=== PATIENT | female | born 1935 | race Two or more races ===

== ENCOUNTER 2023-04-05 13:36 | Inpatient (IN) | payer OTHER ==
[~2023-04-05] VITALS: Ht 157.5 cm; Wt 54.1 kg
[2023-04-05 14:44] VITALS: PULSE 81; RESP 19; O2SAT 96
[2023-04-05 14:53] LABS: Basophils # (auto) 0 10 ^3/uL (0-0.2); Basophils % (auto) 0.1 % (0.0-2.0); Eosinophils # (auto) 0 10 ^3/uL (0-0.8); Hematocrit 37.6 % (36.0-46.0); Hemoglobin 12.4 g/dL (12.2-16.2); Lymphocytes # (auto) 0.6 10 ^3/uL (0.4-5.4); Lymphocytes % (auto) 3.5 % (10.0-50.0); Mean Corpuscular Hemoglobin 30.1 pg (28.0-32.0); Mean Corpuscular Hgb Conc. 32.9 g/dL (32.0-36.0); Mean Corpuscular Volume 91.4 fL (80.0-100.0); Monocytes # (auto) 0.8 10 ^3/uL (0-1.3); Monocytes % (auto) 4.8 % (0.0-12.0); Neutrophils % (auto) 91.6 % (37.0-80.0); Nucleated Red Blood Cells % 0.1 %; Red Blood Cells 4.11 10^6/uL (4.0-5.20); White Blood Cell 17.4 10^3/uL (4.4-10.8)
[2023-04-05 15:00] LABS: Urine Bacteria FEW /hpf (None Seen); Urine Blood Negative /uL (Negative); Urine Clarity Clear (Clear); Urine Color Yellow (Yellow); Urine Protein, UAD TRACE (Negative); Urine Specific Gravity 1.018 (1.001-1.035); Urine Urobilinogen Normal (Negative); Urine WBC 4 /hpf (0 - 5); Urine pH 6.5 (5.0-8.0)
[2023-04-05 15:04] LABS: INR 1.05 (0.9-1.15); Partial Thromboplastin Time 29.1 SEC (24.5-34.5)
[2023-04-05 15:26] LABS: Alanine Aminotransferase 22 U/L (7-40); Albumin 4.3 g/dL (3.2-4.8); Alkaline Phosphatase 115 U/L (46-116); Anion Gap 8 (5-15); Aspartate Aminotransferase 36 U/L (13-40); BUN/Creatinine Ratio 28.3 (10.0-20.0); Blood Urea Nitrogen 17 mg/dL (9-23); Calcium 9.5 mg/dL (8.7-10.4); Carbon Dioxide 27 mmol/L (20-30); Chloride 103 mmol/L (98-107); Glucose 129 mg/dL (74-106); Potassium 4.1 mmol/L (3.5-5.1); Sodium 138 mmol/L (136-145)
[2023-04-05 15:27] LABS: Total Protein 6.7 g/dL (5.7-8.2)
[2023-04-05] MEDS ORDERED: SODIUM CHLORIDE 0.9% 1,000 ML IV ONE (16:30)
[2023-04-05] MEDS ORDERED: cefTRIAXone 1GM/50ML D5W 50 ML IV ONE (16:30)
[2023-04-05] MEDS ORDERED: HYDROmorphone HCL 2 MG/ML VL/or syr IV PRN (17:15)
[2023-04-05] MEDS ORDERED: SODIUM CHLORIDE 0.9% 1,000 ML IV SCH (17:15)
[2023-04-05] MEDS ORDERED: DOCUSATE SOD 100 MG CAP PO PRN (17:15)
[2023-04-05] MEDS ORDERED: MORPHINE SULFATE INJ 2 MG/ml SYRG IV PRN (17:15)
[2023-04-05] MEDS ORDERED: ONDANSETRON HCL 4 MG/2 ML VIAL IV PRN (17:15)
[2023-04-05 18:03] LABS: INR 1.02 (0.9-1.15); Partial Thromboplastin Time 30.2 SEC (24.5-34.5); Prothrombin Time 10.7 sec (9.3-11.8)
[2023-04-05 19:20] VITALS: PULSE 95; RESP 18; O2SAT 97
[2023-04-05 20:20] LABS: LDL Cholesterol 113 mg/dL (< 100); Triglycerides 79 mg/dL (< 150)
[2023-04-05 20:22] LABS: Cholesterol 195 mg/dL (< 200); HDL Cholesterol 71 mg/dL (40-59)
[2023-04-05 21:13] LABS: Amphetamine Screen, Urine Neg (NEGATIVE); Barbiturate Scree,Urine Neg (NEGATIVE); Benzodiazephine Screen, Urine Neg (NEGATIVE); Cannabinoid Screen, Urine Neg (NEGATIVE); Cocaine Screen, Urine Neg (NEGATIVE); Opiate Scree,Urine Neg (NEGATIVE); Phencyclidine Screen, Urine Neg (NEGATIVE)
[2023-04-05 23:34] VITALS: BP 136/76; PULSE 87; TEMP 99.3; O2SAT 96
[2023-04-06] VITALS (10 sets, daily range): BP systolic 109–137; BP diastolic 59–78; PULSE 67–98; RESP 14–19; TEMP 97.5–98.9; O2SAT 90–99
[2023-04-06] MEDS ORDERED: LISI-275 PO (01:00)
[2023-04-06] MEDS ORDERED: DOCU-94 PO (01:00)
[2023-04-06] MEDS ORDERED: LORA-1121 PO (01:01)
[2023-04-06] MEDS ORDERED: MEMA1TAB3 PO (01:01)
[2023-04-06 06:00] LABS: Basophils # (auto) 0 10 ^3/uL (0-0.2); Basophils % (auto) 0.1 % (0.0-2.0); Eosinophils # (auto) 0 10 ^3/uL (0-0.8); Eosinophils % (auto) 0.3 % (0.0-7.0); Hematocrit 34.1 % (36.0-46.0); Hemoglobin 11.4 g/dL (12.2-16.2); Lymphocytes % (auto) 7.3 % (10.0-50.0); Mean Corpuscular Hemoglobin 30.4 pg (28.0-32.0); Mean Corpuscular Hgb Conc. 33.4 g/dL (32.0-36.0); Mean Corpuscular Volume 91.1 fL (80.0-100.0); Monocytes # (auto) 0.9 10 ^3/uL (0-1.3); Monocytes % (auto) 6.7 % (0.0-12.0); Neutrophils # (auto) 11.6 10 ^3/uL (1.6-8.6); Neutrophils % (auto) 85.6 % (37.0-80.0); Nucleated Red Blood Cells % 0.1 %; Red Blood Cells 3.74 10^6/uL (4.0-5.20); Red Cell Distribution Width 13.7 % (11.8-14.3); White Blood Cell 13.6 10^3/uL (4.4-10.8)
[2023-04-06 06:08] LABS: Chloride 103 mmol/L (98-107); Sodium 136 mmol/L (136-145)
[2023-04-06 06:09] LABS: Anion Gap 7 (5-15); Calcium 8.9 mg/dL (8.5-10.1); Carbon Dioxide 26 mmol/L (20-30)
[2023-04-06 06:14] LABS: BUN/Creatinine Ratio 19.3 (10.0-20.0); Blood Urea Nitrogen 11 mg/dL (9-23); Glucose 115 mg/dL (74-106)
[2023-04-06] MEDS ORDERED: ceFAZolin 1GM/50ML 50 ML IV ONE (11:59)
[2023-04-06] MEDS ORDERED: BUPIVACAINE 0.5% P/F INJ 10 ML VIAL ONE ×2 (12:00→13:08)
[2023-04-06] MEDS ORDERED: fentaNYL CITRATE 100 MCG/2 ML VL ONE (12:04)
[2023-04-06] MEDS ORDERED: MIDAZOLAM HCL 2MG/2ML 2ml VIAL (1mg/ml) ONE (12:05)
[2023-04-06] MEDS ORDERED: DexAMETHasone SOD PHOS 10MG/1ML VIAL INJ ONE (13:19)
[2023-04-06] MEDS ORDERED: PROPOFOL 10 MG/ML 20 ML IV ONE (13:19)
[2023-04-06] MEDS: ceFAZolin 1GM/50ML 50 ML IV SCH ×2 (15:29→23:35)
[2023-04-06] MEDS ORDERED: PHENYLEPHRINE HCL 10 MG/ML VL IV ONE (16:39)
[2023-04-06] MEDS: LISINOPRIL 10 MG TAB PO SCH (18:30)
[2023-04-07] MEDS: ceFAZolin 1GM/50ML 50 ML IV SCH (01:30)
[2023-04-07 05:00] VITALS: BP 133/70; PULSE 93; RESP 19; TEMP 98.1; O2SAT 91
[2023-04-07 06:55] LABS: Basophils # (auto) 0 10 ^3/uL (0-0.2); Basophils % (auto) 0.1 % (0.0-2.0); Eosinophils # (auto) 0 10 ^3/uL (0-0.8); Hematocrit 30.3 % (36.0-46.0); Hemoglobin 10.2 g/dL (12.2-16.2); Lymphocytes # (auto) 0.7 10 ^3/uL (0.4-5.4); Lymphocytes % (auto) 4.6 % (10.0-50.0); Mean Corpuscular Hemoglobin 30.8 pg (28.0-32.0); Mean Corpuscular Hgb Conc. 33.8 g/dL (32.0-36.0); Mean Corpuscular Volume 91.2 fL (80.0-100.0); Monocytes # (auto) 1.1 10 ^3/uL (0-1.3); Neutrophils # (auto) 14.4 10 ^3/uL (1.6-8.6); Neutrophils % (auto) 88.3 % (37.0-80.0); Red Blood Cells 3.32 10^6/uL (4.0-5.20); Red Cell Distribution Width 13.6 % (11.8-14.3); White Blood Cell 16.3 10^3/uL (4.4-10.8)
[2023-04-07 07:22] LABS: Chloride 104 mmol/L (98-107); Potassium 4.1 mmol/L (3.5-5.1); Sodium 137 mmol/L (136-145)
[2023-04-07 07:23] LABS: Anion Gap 5 (5-15); Carbon Dioxide 28 mmol/L (20-30)
[2023-04-07 07:24] LABS: Calcium 9.1 mg/dL (8.5-10.1)
[2023-04-07 07:28] LABS: BUN/Creatinine Ratio 32.1 (10.0-20.0); Blood Urea Nitrogen 18 mg/dL (9-23); Glucose 114 mg/dL (74-106)
[2023-04-07 08:00] VITALS: PULSE 92; PULSE 98; RESP 20; O2SAT 93
[2023-04-07] MEDS: LISINOPRIL 10 MG TAB PO SCH (10:00)
[2023-04-07 17:03] VITALS: BP 127/66; PULSE 86; RESP 18; TEMP 97.9; O2SAT 93
[2023-04-07 20:00] VITALS: PULSE 87; PULSE 96; RESP 18; O2SAT 94
[2023-04-08 06:20] LABS: Basophils # (auto) 0 10 ^3/uL (0-0.2); Basophils % (auto) 0.1 % (0.0-2.0); Eosinophils # (auto) 0.1 10 ^3/uL (0-0.8); Eosinophils % (auto) 0.5 % (0.0-7.0); Hematocrit 27.9 % (36.0-46.0); Hemoglobin 9.2 g/dL (12.2-16.2); Lymphocytes # (auto) 0.7 10 ^3/uL (0.4-5.4); Lymphocytes % (auto) 6.4 % (10.0-50.0); Mean Corpuscular Hemoglobin 30.6 pg (28.0-32.0); Mean Corpuscular Hgb Conc. 32.8 g/dL (32.0-36.0); Mean Corpuscular Volume 93.3 fL (80.0-100.0); Monocytes # (auto) 0.8 10 ^3/uL (0-1.3); Monocytes % (auto) 7.3 % (0.0-12.0); Neutrophils # (auto) 9.8 10 ^3/uL (1.6-8.6); Neutrophils % (auto) 85.7 % (37.0-80.0); Red Cell Distribution Width 13.9 % (11.8-14.3); White Blood Cell 11.4 10^3/uL (4.4-10.8)
[2023-04-08 06:24] LABS: Chloride 104 mmol/L (98-107); Potassium 4.4 mmol/L (3.5-5.1); Sodium 138 mmol/L (136-145)
[2023-04-08 06:25] LABS: Anion Gap 10 (5-15); Calcium 6.9 mg/dL (8.5-10.1); Carbon Dioxide 24 mmol/L (20-30)
[2023-04-08 06:30] LABS: BUN/Creatinine Ratio 45.2 (10.0-20.0); Blood Urea Nitrogen 14 mg/dL (9-23); Glucose 85 mg/dL (74-106)
[2023-04-08 07:30] VITALS: PULSE 81; PULSE 96; O2SAT 94
[2023-04-08 08:55] VITALS: BP 108/46; PULSE 107; RESP 18; TEMP 98.9; O2SAT 96
[2023-04-08] MEDS: LISINOPRIL 10 MG TAB PO SCH (10:00)
[2023-04-08 11:05] VITALS: BP 108/46; TEMP 37.2
[2023-04-08 13:00] VITALS: BP 119/52; PULSE 104; RESP 18; TEMP 98.6; O2SAT 92
== END 2023-04-08 16:40 | DRG 481 ==
LOC: EDBD 13:36 → ER 13:36 → TELE 17:20 → TELE-CENTR 23:08
PROVIDERS: ADMIT Internal Medicine
PROC: BQ13ZZZ Fluoroscopy of Right Femur (ICD-10-PCS; 2023-04-06)
PROC: 0QS604Z Reposition Right Upper Femur with Internal Fixation Device, Open Approach (ICD-10-PCS; principal; 2023-04-06 12:15)
DX: S72.141A Displaced intertrochanteric fracture of right femur, initial encounter for closed fracture (principal); M48.54XA Collapsed vertebra, not elsewhere classified, thoracic region, initial encounter for fracture; R71.0 Precipitous drop in hematocrit; R65.10 Systemic inflammatory response syndrome (SIRS) of non-infectious origin without acute organ dysfunction; J44.9 Chronic obstructive pulmonary disease, unspecified; F03.90 Unspecified dementia, unspecified severity, without behavioral disturbance, psychotic disturbance, mood disturbance, and anxiety; Z66 Do not resuscitate; I11.9 Hypertensive heart disease without heart failure; W18.39XA Other fall on same level, initial encounter; Y93.89 Activity, other specified; Z51.5 Encounter for palliative care; Y92.89 Other specified places as the place of occurrence of the external cause; Y99.8 Other external cause status
CPT/HCPCS: 36415; 70450; 71250; 72192; 73501; 76000; 80048; 80053; 80061; 80307; 81001; 82306; 83036; 84484; 85025; 85610; 85730; 86850; 86900; 86901; 87081; 87086; 93005; 93306; 96365; 97110; 97163; 97530; C1713; C1769; G0378; J0690; J0696; J1100; J2250; J2405; J2704; J3490